=== PATIENT | female | born 1970 | race Caucasian/White ===

== ENCOUNTER 2016-07-25 20:18 | Emergency (ER) | payer MEDICAID ==
[~2016-07-25] VITALS: Ht 160 cm; Wt 102.0 kg
[2016-07-25 21:34] VITALS: Ht 160 cm; Wt 102.0 kg
[2016-07-25 22:54] LABS: ADD SCAN DIFF NO
[2016-07-25 23:03] LABS: BASOPHIL # 0.1 10^3/ul (0.0-0.1); BASOPHILS % 0.7 % (0.0-2.0); EOSINOPHILS # 0.3 10^3/ul (0.0-0.5); EOSINOPHILS % 3.3 % (0.0-7.0); HEMATOCRIT 33.2 % (37.0-47.0); HEMOGLOBIN 9.8 g/dl (12.0-16.0); LYMPHOCYTES # 2.6 10^3/ul (0.8-2.9); LYMPHOCYTES % 29.1 % (15.0-51.0); MEAN CORPUSCULAR HEMOGLOBIN 22.3 pg (29.0-33.0); MEAN CORPUSCULAR HGB CONC 29.5 g/dl (32.0-37.0); MEAN CORPUSCULAR VOLUME 75.5 fl (82.0-101.0); MEAN PLATELET VOLUME 8.8 fl (7.4-10.4); MONOCYTE # 0.7 10^3/ul (0.3-0.9); MONOCYTES % 7.4 % (0.0-11.0); NEUTROPHIL # 5.3 10^3/ul (1.6-7.5); NEUTROPHILS % 59.2 % (39.0-77.0); PLATELET COUNT 339 10^3/UL (140-415); RED CELL DISTRIBUTION WIDTH 15.4 % (11.5-14.5); WHITE BLOOD COUNT 8.9 10^3/ul (4.8-10.8)
[2016-07-25] MEDS ORDERED: FER325 PO (23:38)
[2016-07-25] MEDS ORDERED: DOCU-144 PO (23:39)
[2016-07-25] MEDS ORDERED: IBUP-1542 PO (23:39)
[2016-07-25] MEDS ORDERED: OSLT75C PO (23:39)
[2016-07-26 00:01] VITALS: BP 133/83; PULSE 81; RESP 20; TEMP 98.3
--- NOTE | 2016-07-26 00:02 | ERD ---
ER Documentation Chief Complaint Date/Time DATE: 07/25/16 TIME: 23:50 Chief Complaint Fever, Colds, cough and HERNANDEZ with dizziness HPI Patient is a 45-year-old female with a past medical history of anemia who presents to the emergency department with fever and flu like symptoms. Patient states that for the last 2 days, she has had a headache, runny nose, cough, body aches and right ear pain. He states that her headache is primarily in the frontal region. Patient denies any nausea, vomiting, photophobia or loss consciousness. Patient states that her headache has been getting gradually worse. Patient denies having onset. Patient denies any neck stiffness or neck pain. She reports tactile fevers or chills. Patient states that she tried taking Tylenol earlier this evening which did alleviate her symptoms. Patient reports a dry cough and clear rhinorrhea. Patient also reports feeling dizzy. Patient states that she has a history of anemia and is concerned that her symptoms are due to low levels. Patient is requesting CBC at this time. She denies any excessive vaginal bleeding or rectal bleeding. She denies any recent travel. Patient denies any sick contacts. Patient did not receive a flu vaccination this year. ROS All systems reviewed and are negative except as per history of present illness. Medications Home Meds Active Scripts Ibuprofen* (Ibuprofen*) 600 Mg Tablet, 600 MG PO Q6, #20 TAB Prov:FE JACOBO PA-C 07/25/16 Oseltamivir Phosphate* (Tamiflu*) 75 Mg Capsule, 75 MG PO BID for 5 Days, CAP Prov:FE JACOBO PA-C 07/25/16 Docusate Sodium* (Colace*) 100 Mg Capsule, 100 MG PO TID, #30 CAP Prov:FE JACOBO PA-C 07/25/16 Ferrous Sulfate* (Ferrous Sulfate*) 325 Mg Tabec, 325 MG PO BID, #60 TAB Prov:FE JACOBO PA-C 07/25/16 Allergies Allergies: Coded Allergies: No Known Allergy (Unverified , 09/12/12) PMhx/Soc History of Surgery: Yes (C-SEC X 2) Anesthesia Reaction: No Hx Neurological Disorder: No Hx Respiratory Disorders: No Hx Cardiac Disorders: No Hx Psychiatric Problems: No Hx Miscellaneous Medical Probl: Yes (ABDOMINAL HERNIA, anemia) Hx Alcohol Use: No Hx Substance Use: No Hx Tobacco Use: No FmHx Family History: No diabetes Physical Exam Vitals Vital Signs Date Time Temp Pulse Resp B/P Pulse Ox O2 Delivery O2 Flow Rate FiO2 07/25/16 21:34 99.2 87 20 132/66 100 Physical Exam GENERAL: Well-developed, well-nourished female. Appears in no acute distress. HEAD: Normocephalic, atraumatic. No deformities or ecchymosis. EYE: Pupils equal, round, and reactive to light. EOMs intact. No conjunctival erythema. No conjunctiva pallor. No eye discharge. ENT: External ear without any masses or tenderness. Auditory canals clear bilaterally. TM visualized bilaterally, non-erythematous, non-bulging. Nasal mucosa pink with no discharge. Oropharynx is pink without any tonsillar erythema or exudates. No uvula deviation. No kissing tonsils. NECK: Supple. No lymphadenopathy or thyromegaly. No meningismus. Normal range of motion of the neck. LUNG: Clear to auscultation bilaterally. No rhonchi, wheezing, rales or coarse breath sounds. HEART: Regular rate and rhythm. No murmurs, rubs or gallops. ABDOMEN: Soft, nontender, and nondistended. Positive bowel sounds in all four quadrants. No rebound tenderness, no guarding. (-) McBurney's point tenderness. No CVA tenderness. BACK: No midline tenderness. EXTREMITIES: Equal pulses bilaterally. No peripheral clubbing, cyanosis or edema. No unilateral leg swelling. NEUROLOGIC: Alert and oriented to person, place and time. Moving all four extremities. 5/5 strength in all extremities. Normal speech. Steady gait. SKIN: Normal color. Warm and dry. No rashes or lesions. Result Diagram: 07/25/16 2246 Results 24 hrs Laboratory Tests Test 07/25/16 22:46 Basophils # 0.110^3/ul Basophils % 0.7% Eosinophils # 0.310^3/ul Eosinophils % 3.3% Hematocrit 33.2% Hemoglobin 9.8g/dl Lymphocytes # 2.610^3/ul Lymphocytes % 29.1% Mean Corpuscular Hemoglobin 22.3pg Mean Corpuscular Hemoglobin Concent 29.5g/dl Mean Corpuscular Volume 75.5fl Mean Platelet Volume 8.8fl Monocytes # 0.710^3/ul Monocytes % 7.4% Neutrophils # 5.310^3/ul Neutrophils % 59.2% Nucleated Red Blood Cells # 0.010^3/ul Nucleated Red Blood Cells % 0.0/100WBC Platelet Count 77221^3/UL Red Blood Count 4.4010^6/ul Red Cell Distribution Width 15.4% White Blood Count 8.910^3/ul Procedures/MDM MEDICAL DECISION MAKING: This is a 45-year-old female with history of anemia who presents to the emergency department with flulike symptoms including fever, dry cough, rhinorrhea, body aches and a headache. Patient also reports dizziness. Patient denies any loss of consciousness or excessive vaginal bleeding. Vital signs were reviewed. Patient was afebrile. Patient was not hypoxic. ENT exam was normal. Lung exam was normal. Abdominal exam was normal. CBC showed a hemoglobin above 9.8, hematocrit of 33.2. No signs of systemic infection. Given these findings, the patients presentation is most consistent with influenza and anemia. I have a much lower clinical concern for bacterial infections including pneumonia, meningitis, intracranial hemorrhage, CVA, sinusitis, otitis externa, acute otitis media, strep pharyngitis, epiglottitis or peritonsillar abscess. Low suspicion for active GI bleeding. Low suspicion for patient requiring blood transfusion at this time. Given that patient presents with symptoms within 48 hours, I will treat the patient with Tamiflu at this time. PRESCRIPTIONS: Tamiflu, ibuprofen, sulfate supplements, Colace DISCHARGE: At this time, patient is stable for discharge and outpatient management. Supportive therapies such as OTC throat lozenges, salt water gurgles, popsicles and jello discussed. I have instructed the patient to follow-up with his/her primary care physician in 1-2 days. Patient should have a recheck CBC in 1 month for primary care physician to trend hemoglobin levels. I have instructed the patient to promptly return to the ER for any new or worsening symptoms including increased pain, swelling, fever, nausea, vomiting, weakness or difficulty breathing. The patient and/or family expressed understanding of and agreement with this plan. All questions were answered. Home care instructions were provided. Departure Diagnosis: Primary Impression: Flu-like symptoms Additional Impression: Anemia Anemia type: unspecified type Qualified Code: D64.9 - Anemia, unspecified type Condition: Stable Patient Instructions: Anemia, Influenza (Adult) Referrals: [facility] YOU HAVE RECEIVED A MEDICAL SCREENING EXAM AND THE RESULTS INDICATE THAT YOU DO NOT HAVE A CONDITION THAT REQUIRES URGENT TREATMENT IN THE EMERGENCY DEPARTMENT. FURTHER EVALUATION AND TREATMENT OF YOUR CONDITION CAN WAIT UNTIL YOU ARE SEEN IN YOUR DOCTORS OFFICE WITHIN THE NEXT 1-2 DAYS. IT IS YOUR RESPONSIBILITY TO MAKE AN APPOINTMENT FOR FOLOW-UP CARE. IF YOU HAVE A PRIMARY DOCTOR --you should call your primary doctor and schedule an appointment IF YOU DO NOT HAVE A PRIMARY DOCTOR YOU CAN CALL OUR PHYSICIAN REFERRAL HOTLINE AT IF YOU CAN NOT AFFORD TO SEE A PHYSICIAN YOU CAN CHOSE FROM THE FOLLOWING [facility] [address] [facility]. [facility] [address] [facility] [facility] [address] [facility] [facility] [address] [facility] [facility] [address] [facility]. [facility]. [address] [facility]. [facility] YOU HAVE RECEIVED A MEDICAL SCREENING EXAM AND THE RESULTS INDICATE THAT YOU DO NOT HAVE A CONDITION THAT REQUIRES URGENT TREATMENT IN THE EMERGENCY DEPARTMENT. FURTHER EVALUATION AND TREATMENT OF YOUR CONDITION CAN WAIT UNTIL YOU ARE SEEN IN YOUR DOCTORS OFFICE WITHIN THE NEXT 1-2 DAYS. IT IS YOUR RESPONSIBILITY TO MAKE AN APPOINTMENT FOR FOLOW-UP CARE. IF YOU HAVE A PRIMARY DOCTOR --you should call your primary doctor and schedule and appointment IF YOU DO NOT HAVE A PRIMARY DOCTOR YOU CAN CALL OUR PHYSICIAN REFERRAL HOTLINE AT . IF YOU CAN NOT AFFORD TO SEE A PHYSICIAN YOU CAN CHOSE FROM THE FOLLOWING [facility]MER[facility], [facility]–1983 INSTITUTIONS: [facility] [address] [place] [address] [facility] [address] [place] [address] [facility] + [facility] [address] [place] [address] Additional Instructions: Will empirically treat for influenza at this time. Symptomatic control advised. Hydrate well. Patient will need to follow with PCP for further management of anemia. Call your primary care doctor TOMORROW for an appointment during the next 1-2 days.See the doctor sooner or return here if your condition worsens before your appointment time. FE JACOBO PA-C Jul 26, 2016 00:01
== END 2016-07-26 00:04 | disposition home or self-care (01) ==
LOC: FTE 20:18
DX: R50.9 Fever, unspecified (principal); R05 Cough; R51 Headache; R09.89 Other specified symptoms and signs involving the circulatory and respiratory systems; D64.9 Anemia, unspecified
CPT/HCPCS: 36415; 85025; Z7502; 99283

== ENCOUNTER 2017-03-06 11:51 | Emergency (ER) | payer MEDICAID ==
[~2017-03-06] VITALS: Ht 157.5 cm; Wt 98.0 kg
[~2017-03-06 11:51] MED LIST: DOCU-144 PO; FER325 PO; IBUP-1542 PO; OSLT75C PO
[2017-03-06 11:53] VITALS: Ht 157.5 cm; Wt 98.0 kg
--- NOTE | 2017-03-06 13:40 | RADRPT ---
PROCEDURE: Ultrasound of the right lower extremity venous system. CLINICAL INDICATION: Posterior knee pain.. TECHNIQUE: Gallagher scale with and without compression, color doppler, spectral doppler of the venous system of the right lower extremity was performed. Venous augmentation maneuvers were utilized. COMPARISON: No prior studies are available for comparison. FINDINGS: RIGHT: Common femoral vein:Patent and compressible. Femoral vein:Patent and compressible. Popliteal vein:Patent and compressible. Visualized calf veins:Patent and compressible. Soft tissues:4.6 x 1.4 x 3.6 cm popliteal cyst. IMPRESSION: 1. No evidence of deep vein thrombosis. 2. 4.6 x 1.4 x 3.6 cm popliteal cyst. RPTAT: [facility] Physician Radha Date Time Electronically viewed and signed by Physician Radha on 03/06/2017 13:40 /
[2017-03-06] MEDS ORDERED: NAPR-260 PO (14:06)
--- NOTE | 2017-03-06 15:13 | ERD ---
ER Documentation Chief Complaint Date/Time DATE: 03/06/17 TIME: 15:08 Chief Complaint Complains of right leg pain x 3 days HPI 46-year-old female complaining of right leg pain 3 days. Patient states the pain is in her posterior knee. She did not have any falls. Pain is worse with walking. Hurts with lifting. Denies recent travel or shortness of breath. Denies numbness or tingling. Denies change in urination or bowel movements. ROS All systems reviewed and are negative except as per history of present illness. Medications Home Meds Active Scripts Naproxen* (Naprosyn*) 500 Mg Tablet, 500 MG PO BID Y for PAIN AND/OR INFLAMMATION, #30 TAB Prov:JANNA VASQUEZ PA-C 03/06/17 Ibuprofen* (Ibuprofen*) 600 Mg Tablet, 600 MG PO Q6, #20 TAB Prov:FE JACOBO PA-C 07/25/16 Oseltamivir Phosphate* (Tamiflu*) 75 Mg Capsule, 75 MG PO BID for 5 Days, CAP Prov:FE JACOBO PA-C 07/25/16 Docusate Sodium* (Colace*) 100 Mg Capsule, 100 MG PO TID, #30 CAP Prov:FE JACOBO PA-C 07/25/16 Ferrous Sulfate* (Ferrous Sulfate*) 325 Mg Tabec, 325 MG PO BID, #60 TAB Prov:FE JACOBO PA-C 07/25/16 Allergies Allergies: Coded Allergies: No Known Allergy (Unverified , 09/12/12) PMhx/Soc History of Surgery: Yes (C-SEC X 2) Anesthesia Reaction: No Hx Neurological Disorder: No Hx Respiratory Disorders: No Hx Cardiac Disorders: No Hx Psychiatric Problems: No Hx Miscellaneous Medical Probl: Yes (ABDOMINAL HERNIA, anemia) Hx Alcohol Use: No Hx Substance Use: No Hx Tobacco Use: No Smoking Status: Never smoker Physical Exam Vitals Vital Signs Date Time Temp Pulse Resp B/P Pulse Ox O2 Delivery O2 Flow Rate FiO2 03/06/17 11:53 98.6 78 20 118/65 98 Physical Exam GENERAL: The patient is well-appearing, well-nourished, in no acute distress CHEST: Clear to auscultation bilaterally. There are no rales, wheezes or rhonchi. HEART: Regular rate and rhythm. No murmurs, clicks, rubs or gallops. No S3 or S4. EXTREMITIES: Tender to palpation of the posterior right knee. No valgus or varus deformity. Normal flexion extension of right knee with strength of 5 out of 5 to the right lower extremity. Distal pulses intact. No pitting edema of the right lower extremity. Normal sensation. NEUROLOGIC: Alert and oriented. Cranial nerves II through XII intact. Motor strength in all 4 extremities with 5 out of 5 strength. Sensation grossly intact. Normal speech and gait. Babinski negative. DTR 2+ throughout. Procedures/MDM DIAGNOSTIC IMAGING REPORT Patient: LINA VOGT : 1970 Age: 46 Sex: F MR #: [id number] DOS: 03/06/17 1243 Ordering MD: ROSS VASQUEZ PA-C Location: [facility] Room/Bed: PROCEDURE: Ultrasound of the right lower extremity venous system. CLINICAL INDICATION: Posterior knee pain.. TECHNIQUE: Gallagher scale with and without compression, color doppler, spectral doppler of the venous system of the right lower extremity was performed. Venous augmentation maneuvers were utilized. COMPARISON: No prior studies are available for comparison. FINDINGS: RIGHT: Common femoral vein: Patent and compressible. Femoral vein: Patent and compressible. Popliteal vein: Patent and compressible. Visualized calf veins: Patent and compressible. Soft tissues: 4.6 x 1.4 x 3.6 cm popliteal cyst. IMPRESSION: 1. No evidence of deep vein thrombosis. 2. 4.6 x 1.4 x 3.6 cm popliteal cyst. ER Course: Robert wrap applied to right knee MDM: 46-year-old female complaining of right knee pain. I have low suspicion for DVT or vascular insufficiency. Patient's ultrasound is within normal limits. I have low suspicion for acute fracture dislocation. Patient does not have history of traumatic injury. I have low suspicion for bacterial infection. Patient's vital signs are stable and exam was not concerning. Patient's pain is likely associated with popliteal cyst. Patient is given strict ER precautions and recommended to follow-up with primary care within 1-2 days for reevaluation. Patient is given Robert wrap for support and pain medication as needed. Departure Diagnosis: Primary Impression: Popliteal cyst Condition: Stable Patient Instructions: Knee Pain, Uncertain Cause Referrals: [facility] YOU HAVE RECEIVED A MEDICAL SCREENING EXAM AND THE RESULTS INDICATE THAT YOU DO NOT HAVE A CONDITION THAT REQUIRES URGENT TREATMENT IN THE EMERGENCY DEPARTMENT. FURTHER EVALUATION AND TREATMENT OF YOUR CONDITION CAN WAIT UNTIL YOU ARE SEEN IN YOUR DOCTORS OFFICE WITHIN THE NEXT 1-2 DAYS. IT IS YOUR RESPONSIBILITY TO MAKE AN APPOINTMENT FOR FOLOW-UP CARE. IF YOU HAVE A PRIMARY DOCTOR --you should call your primary doctor and schedule an appointment IF YOU DO NOT HAVE A PRIMARY DOCTOR YOU CAN CALL OUR PHYSICIAN REFERRAL HOTLINE AT IF YOU CAN NOT AFFORD TO SEE A PHYSICIAN YOU CAN CHOSE FROM THE FOLLOWING [facility] [address] [facility] [address] [facility] [address] [facility]. [facility] [address] [facility] [address] [facility]. [facility] [address] [facility]. [facility]. [address] Additional Instructions: FOLLOW UP WITH YOUR PRIMARY CARE PHYSICIAN TOMORROW.Return to this facility if you are not improving as expected. JANNA VASQUEZ PA-C Mar 06, 2017 15:13
== END 2017-03-06 15:19 | disposition home or self-care (01) ==
LOC: FTE 11:51
DX: M71.21 Synovial cyst of popliteal space [Baker], right knee (principal)
CPT/HCPCS: 93971; Z7502; 99283